=== PATIENT | female | born 1990 | race Caucasian/White ===

== ENCOUNTER 2017-09-17 05:40 | Day surgery (SDC) | payer BC ==
[~2017-09-17] VITALS: Ht 162.6 cm; Wt 70.0 kg
[~2017-09-17 05:40] MED LIST: TRI-LO-ESTARYL1 EACH PO
[2017-09-17] MEDS ORDERED: ADVIL200 MG PO (06:01)
[2017-09-17 06:06] VITALS: BP 124/65
[2017-09-17 08:37] VITALS: BP 114/67
[2017-09-17 09:33] VITALS: BP 114/65
== END 2017-09-17 09:40 | disposition home or self-care (01) ==
LOC: SDC 05:40
PROC: 0UBC7ZZ Excision of Cervix, Via Natural or Artificial Opening (ICD-10-PCS; principal; 2017-09-17)
DX: D06.9 Carcinoma in situ of cervix, unspecified (principal)
CPT/HCPCS: 88305; 88307; J1885; J2250; J3010